=== PATIENT | female | born 1925 | race Caucasian/White ===

== ENCOUNTER 2016-12-10 17:31 | Emergency (ER) | payer OTHER ==
[~2016-12-10] VITALS: Ht 144.8 cm; Wt 49.0 kg
[~2016-12-10 17:31] MED LIST: ALEVE220 MG PO; ANTIVERT 25 MG25 M1 PO; ASPIR 8181 MG PO; CENTRUM1 TA1 PO; CRANBERRY450 M2 PO; DUREZOL 5 ML5 ML OS; ILEVRO 1.7 ML1.7 ML OS; LOPRESSOR 12.12.5 MG PO; MELOXICAM15 MG PO; NAPROSYN375 MG PO; POLYETHYLE17 GM/Dos1 PO; POLYMYXIN-B/TRI10 ML OS; PRESERVISION1 SGL PO; SYNTHROID0.025 MG PO; TRAMADOL HCL50 M1 PO; TYLENOL #31 TAB PO; VITAMIN D31000 UNI1 PO; VITAMIN D32000 IU PO
--- NOTE | 2016-12-10 18:59 | ED GI/GU/ABDOMINAL COMPLAINT ---
History of Present Illness General Chief Complaint: Abdominal Pain/Flank Pain Stated Complaint: ABD PAIN Source: patient, family Exam Limitations: poor historian Vital Signs & Intake/Output Vital Signs & Intake/Output Vital Signs Date Time Temp Pulse Resp B/P Pulse O2 O2 Flow FiO2 Ox Delivery Rate 12/10 2225 98.8 83 18 140/89 100 Room Air 12/10 1851 81 20 141/85 100 Room Air 12/10 1735 96.7 98 18 151/90 94 Room Air Allergies Coded Allergies: NO KNOWN ALLERGIES (09/15/13) Reconcile Medications Cholecalciferol (Vitamin D3) (Vitamin D3) 1,000 UNIT CAPSULE 2 CAP PO DAILY SUPPLEMENT (Reported) Cranberry Fruit (Cranberry) (Unknown Strength) TABLET (Unknown Dose) PO DAILY SUPPLEMENT (Reported) Ibandronate Sodium (Boniva) 150 MG TABLET 1 TAB PO Q30D BONES (Reported) on the same date with a full glass of water at least 30 minutes before first food or drink of the day; remain in an upright posi Multivitamin (Multi-Day Vitamins) 1 EACH TABLET 1 TAB PO DAILY SUPPLEMENT ( Reported) Polyethylene Glycol 3350 17 GRAM/DOSE POWDER 17 GM PO DAILY GI (Reported) Triage Note: PT STATES THAT SHE HAS BEEN CONSTIPATED, CALLED HER DR AND HE TOLD SON TO BUY MAGNESIUM CITRATE, PTS SON BOUGHT 2 BOTTLES AND PT DRANK 1 BOTTLE THIS AM AND NOW CAN NOT STOP MOVING HER BOWELS AND HAS ABD CRAMPING Triage Nurses Notes Reviewed? yes ? n Is pt currently ? No Onset: Abrupt Duration: day(s):, constant Timing: recent history Quality/Severity: cramping, moderate, severe Location: right lower quadrant Radiation: no radiation Activities at Onset: none No Modifying Factors: none HPI: 89-year-old female comes into emergency room with constipation for past 4 days. Patient has not had a solid bowel movement. Today her doctor told her to pick out hand magnesium citrate. Patient has been having liquidy stool since then and comes in for further evaluation. Some right-sided abdominal pain which is chronic for the patient. Denies any fever chills vomiting. Denies any other associated symptoms at this time. Denies any chest pain shortness of breath. (NEELAM FERNANDES,DONAL) Past History Travel History Traveled to [place] past 21 day No Medical History Any Pertinent Medical History? see below for history Neurological: vertigo EENT: cataracts Cardiovascular: NONE Respiratory: NONE Gastrointestinal: NONE Hepatic: NONE Renal: NONE Musculoskeletal: sciatica Psychiatric: NONE Endocrine: NONE Blood Disorders: NONE Cancer(s): NONE BIOLOGY TEACHER/Reproductive: NONE Surgical History Surgical History: L KNEE Psychosocial History Who do you live with Patient/Self What is your primary language Japanese Tobacco Use: Never used ETOH Use: denies use Illicit Drug Use: denies illicit drug use Family History Hx Contributory? No (DONAL PENA) Review of Systems Review of Systems Constitutional: Reports: no symptoms. EENTM: Reports: no symptoms. Respiratory: Reports: no symptoms. Cardiovascular: Reports: no symptoms. GI: Reports: see HPI. Genitourinary: Reports: no symptoms. Musculoskeletal: Reports: no symptoms. Skin: Reports: no symptoms. Neurological/Psychological: Reports: no symptoms. Hematologic/Endocrine: Reports: no symptoms. Immunologic/Allergic: Reports: no symptoms. All Other Systems: Reviewed and Negative (DONAL PENA) Physical Exam Physical Exam General Appearance: well developed/nourished, no apparent distress, alert, awake Head: atraumatic, normal appearance Eyes: Bilateral: normal appearance, EOMI. Ears, Nose, Throat, Mouth: hearing grossly normal, moist mucous membrane Neck: normal inspection, full range of motion Respiratory: normal breath sounds, no respiratory distress Cardiovascular: regular rate/rhythm Gastrointestinal: soft, tenderness (mild) Back: normal inspection Extremities: normal range of motion Neurologic/Psych: awake, alert, oriented x 3, normal gait, normal mood/affect Core Measures ACS in differential dx? No Severe Sepsis Present: No Septic Shock Present: No (DONAL PENA) Progress Differential Diagnosis: biliary colic, colon cancer, diverticulitis, hernia, hemorrhoids, ischemic bowel, pancreatitis, PUD/GERD, perforated viscous, SBO, threatened AB, UTI/pyelo, constipation Plan of Care: Orders Procedure Date/time Status TROPONIN LEVEL 12/10 183 Complete LIPASE 12/10 1838 Complete LACTIC ACID 12/10 183 Complete COMPREHENSIVE METABOLIC PANEL 12/10 183 Complete CBC WITHOUT DIFFERENTIAL 12/10 183 Complete AMYLASE 12/10 183 Complete EKG 12/10 183 Active Laboratory Tests 12/10/16 2138: Lactic Acid Cancelled 12/10/16 1856: Anion Gap 10, Estimated GFR 47 L, BUN/Creatinine Ratio 24.5, Glucose 130 H, Lactic Acid 1.3, Calcium 9.9, Total Bilirubin 0.6, AST 28, ALT 29, Alkaline Phosphatase 74, Troponin I < 0.01, Total Protein 7.2, Albumin 4.2, Globulin 3.0, Albumin/Globulin Ratio 1.4, Amylase 90, Lipase 144, CBC w Diff NO MAN DIFF REQ, RBC 3.99 L, MCV 91.1, MCH 30.5, RDW 14.3, MPV 7.3 L, Gran % 79.1 H, Lymphocytes % 13.8 L, Monocytes % 6.2, Eosinophils % 0.5, Basophils % 0.4, Absolute Granulocytes 7.3 H, Absolute Lymphocytes 1.3, Absolute Monocytes 0.6, Absolute Eosinophils 0, Absolute Basophils 0, PUBS MCHC 33.5 12/10/16 1838: Urine Color Cancelled, Urine Clarity Cancelled, Urine pH Cancelled, Ur Specific [place] Cancelled, Urine Protein Cancelled, Urine Ketones Cancelled, Urine Nitrite Cancelled, Urine Bilirubin Cancelled, Urine Urobilinogen Cancelled, Ur Leukocyte Esterase Cancelled, Ur Microscopic Cancelled, Urine Hemoglobin Cancelled, Urine Glucose Cancelled Diagnostic Imaging: Viewed by Me: CT Scan. Discussed w/RAD: CT Scan. Radiology Impression: SERVICE DATE: 12/10/16 EXAM TYPE: CAT - CT ABD & PELVIS W/O IV CONTRAS EXAMINATION: CT ABDOMEN AND PELVIS WITHOUT CONTRAST CLINICAL INFORMATION: Right-sided abdominal pain. COMPARISON: CT abdomen and pelvis with contrast 09/15/2013. TECHNIQUE: Multidetector volumetric imaging was performed from the superior aspect of the liver through the pubic symphysis. Sagittal and coronal reformatted images were obtained on the technologist's workstation. DLP: 201 mGy-cm FINDINGS: Limited evaluation of the solid abdominal viscera in the absence of intravenous contrast. LUNG BASES: The visualized lung bases are unremarkable. LIVER, GALLBLADDER, AND BILIARY TREE: The liver is normal in size, shape, and attenuation. There is a focal hypoattenuating lesion within the left hepatic lobe measuring 1.1 cm. This does not appear significantly changed relative to the prior examination. No contour deforming hepatic lesion or biliary ductal dilatation is present. The gallbladder is physiologically distended. Redemonstrated is a large stone within the gallbladder lumen. There are no secondary signs of acute cholecystitis. PANCREAS : Unremarkable. SPLEEN: Unremarkable. ADRENAL GLANDS: Unremarkable. KIDNEYS AND URETERS: The kidneys are normal in size, shape and contour. No contour deforming renal lesions are identified. No renal or ureteral stones are identified and there is no hydroureteronephrosis of either kidney or renal collecting system BLADDER: Unremarkable. GASTROINTESTINAL TRACT: Normal anatomic orientation of the stomach relative to the duodenum. Normal course and caliber of abdominal and pelvic bowel loops, without findings indicative of obstruction or ileus. Scattered colonic diverticulosis, most extensive along the rectosigmoid colon, without secondary signs of acute diverticulitis. Normal-appearing appendix within the right hemiabdomen. Incidental note is made of impacted stool within the rectal vault, measuring approximately 6.5 x 6.7 x 7.2 cm in AP, transverse and craniocaudal dimensions respectively. Minimal circumferential rectal wall thickening without bowel wall pneumatosis. No organizing intra-abdominal or pelvic fluid collections and no free intraperitoneal air. ABDOMINAL WALL: No significant hernia is appreciated. LYMPH NODES: No significant abdominal or pelvic adenopathy. VASCULAR: Extensive atherosclerosis of the abdominal aorta and its branching vessels, without aneurysmal dilatation. Limited evaluation for vascular patency given lack of intravenous contrast. PELVIC VISCERA: Unremarkable. OSSEOUS STRUCTURES: No acute osseous abnormality. Demineralization of the visualized bones. Severe multilevel degenerative disc disease of the imaged thoracolumbar spine with chronic compression deformities involving the L3 , L4 and L5 vertebral bodies. Specifically, there is approximately 50% disc height loss involving the L3 and L4 vertebral bodies and approximately 25% disc height loss involving the L5 vertebral body. No acute lumbar vertebral compression deformities are identified. IMPRESSION: No acute findings within the abdomen or pelvis to explain patient symptomatology. Cholelithiasis, without secondary signs of acute cholecystitis. Normal-appearing appendix within the right lower quadrant of the abdomen. Scattered colonic diverticulosis, notably involving the sigmoid colon, without secondary signs of acute diverticulitis. Incidental note is made of impacted stool within the rectal vault measuring approximately 6.5 x 6.7 x 7.2 cm. Minimal circumferential rectal wall thickening , without bowel wall pneumatosis to suggest ischemia. DICTATED BY: NAV JARAMILLO MD DATE/TIME DICTATED:12/10/161948 TRANSLATOR AND INTERPRETER:YANETH DATE/TIME TRANSCRIBED:12/10/161948 Initial ED EKG: normal intervals, normal p-waves, normal sinus rhythm, rate (76) (DONAL PENA) Departure Departure Disposition: HOME OR SELF CARE Condition: Stable Clinical Impression Primary Impression: Constipation Referrals: ANISH PARKS,LILLY Broderick (PCP/Family) Additional Instructions: take MiraLAX [id number]. Use stool softener daily. Continue to use magnesium citrate as needed for the next day. Follow-up with GI doctor on Friday. Return if any other concerns worsening symptoms. Please go over all results of today's visit with your primary care doctor. Contact your primary care doctor to let them know you were here in the emergency room. There may be nonspecific findings which may not be related to your visit today here in the emergency room but may require further evaluation and chronic monitoring by your primary care doctor. If you had a laceration today the chance of foreign body always remains. You should follow-up with your primary care doctor for recheck in 3-5 days for a wound check. If you had an x-ray done there is a chance that a fracture could have been missed on initial read and you should follow-up with your primary care doctor for repeat x-rays if symptoms persist. If your blood pressure was elevated here in the emergency room please have rechecked by her primary care doctor within the next 48 hours by your primary care doctor. If you were prescribed a narcotic here in the emergency room or any type of controlled substances you're not allowed to drive while taking this medication or operate any type of heavy machinery. Narcotics can make you feel lightheaded dizziness nausea and can cause constipation. You may need to pick out hand a stool softener. Thank you for choosing [facility] emergency room. Please return to the emergency room immediately if you have any other concerns worsening of symptoms. Departure Forms: Customer Survey General Discharge Information Comments 12/10/2016 10:20:33 PM Patient clinically looks well. Nontoxic-appearing. In no apparent distress. Patient had a couple small bowel movements here. Patient told to use magnesium citrate again tomorrow. Take [id number] MiraLAX up. Patient has an appointment with GI doctor on . No other acute findings. Case was discussed with Dr. Wilson. Return if any other concerns. Patient understands and agrees with plan of care. (DONAL PENA) PA/[employer] Co-Sign Statement Statement: ED Attending supervision documentation- [X] I saw and evaluated the patient. I have also reviewed all the pertinent lab results and diagnostic results. I agree with the findings and the plan of care as documented in the PA's/[employer]'s documentation. [X] I have reviewed the ED Record and agree with the PA's/[employer]'s documentation. [] Additions or exceptions (if any) to the PAs/[employer]'s note and plan are summarized below: [] (JOZEF PARKS,DIEUDONNE Cartagena)
[2016-12-10 19:07] LABS: ABSOLUTE BASOPHIL COUNT 0 /CUMM (0.0-0.2); ABSOLUTE EOSINOPHIL COUNT 0 /CUMM (0.0-0.7); ABSOLUTE GRANULOCYTE CT 7.3 /CUMM (1.4-6.5); ABSOLUTE LYMPH COUNT 1.3 /CUMM (1.2-3.4); ABSOLUTE MONOCYTE COUNT 0.6 /CUMM (0.10-0.60); BASOPHIL % 0.4 % (0.0-2.0); EOSINOPHIL % 0.5 % (0-5); GRANULOCYTE % 79.1 % (42.2-75.2); HEMATOCRIT 36.4 % (37-47); MEAN CORPUSCULAR HGB 30.5 PG (27.0-31.0); MEAN CORPUSCULAR HGB CONC 33.5 G/DL (33.0-37.0); MEAN CORPUSCULAR VOLUME 91.1 FL (81.0-99.0); MEAN PLATELET VOLUME 7.3 FL (7.4-10.4); PLATELET COUNT 262 /CUMM (130-400); RBC DISTRIBUTION WIDTH 14.3 % (11.5-14.5); RED BLOOD CELL CT 3.99 /CUMM (4.20-5.40); WHITE BLOOD CELL COUNT 9.2 /CUMM (4.8-10.8)
[2016-12-10] MEDS ORDERED: POLYETHYLENE G255 GM PO (19:18)
[2016-12-10] MEDS ORDERED: BONIVA150 M1 PO (19:18)
[2016-12-10] MEDS ORDERED: MULTI-DAY VITA1 EACH PO (19:18)
--- NOTE | 2016-12-10 20:01 | CT SCAN REPORT ---
EXAMINATION: CT ABDOMEN AND PELVIS WITHOUT CONTRAST CLINICAL INFORMATION: Right-sided abdominal pain. COMPARISON: CT abdomen and pelvis with contrast 09/15/2013. TECHNIQUE: Multidetector volumetric imaging was performed from the superior aspect of the liver through the pubic symphysis. Sagittal and coronal reformatted images were obtained on the technologist's workstation. DLP: 201 mGy-cm FINDINGS: Limited evaluation of the solid abdominal viscera in the absence of intravenous contrast. LUNG BASES: The visualized lung bases are unremarkable. LIVER, GALLBLADDER, AND BILIARY TREE: The liver is normal in size, shape, and attenuation. There is a focal hypoattenuating lesion within the left hepatic lobe measuring 1.1 cm. This does not appear significantly changed relative to the prior examination. No contour deforming hepatic lesion or biliary ductal dilatation is present. The gallbladder is physiologically distended. Redemonstrated is a large stone within the gallbladder lumen. There are no secondary signs of acute cholecystitis. PANCREAS: Unremarkable. SPLEEN: Unremarkable. ADRENAL GLANDS: Unremarkable. KIDNEYS AND URETERS: The kidneys are normal in size, shape and contour. No contour deforming renal lesions are identified. No renal or ureteral stones are identified and there is no hydroureteronephrosis of either kidney or renal collecting system BLADDER: Unremarkable. GASTROINTESTINAL TRACT: Normal anatomic orientation of the stomach relative to the duodenum. Normal course and caliber of abdominal and pelvic bowel loops, without findings indicative of obstruction or ileus. Scattered colonic diverticulosis, most extensive along the rectosigmoid colon, without secondary signs of acute diverticulitis. Normal-appearing appendix within the right hemiabdomen. Incidental note is made of impacted stool within the rectal vault, measuring approximately 6.5 x 6.7 x 7.2 cm in AP, transverse and craniocaudal dimensions respectively. Minimal circumferential rectal wall thickening without bowel wall pneumatosis. No organizing intra-abdominal or pelvic fluid collections and no free intraperitoneal air. ABDOMINAL WALL: No significant hernia is appreciated. LYMPH NODES: No significant abdominal or pelvic adenopathy. VASCULAR: Extensive atherosclerosis of the abdominal aorta and its branching vessels, without aneurysmal dilatation. Limited evaluation for vascular patency given lack of intravenous contrast. PELVIC VISCERA: Unremarkable. OSSEOUS STRUCTURES: No acute osseous abnormality. Demineralization of the visualized bones. Severe multilevel degenerative disc disease of the imaged thoracolumbar spine with chronic compression deformities involving the L3, L4 and L5 vertebral bodies. Specifically, there is approximately 50% disc height loss involving the L3 and L4 vertebral bodies and approximately 25% disc height loss involving the L5 vertebral body. No acute lumbar vertebral compression deformities are identified. IMPRESSION: No acute findings within the abdomen or pelvis to explain patient symptomatology. Cholelithiasis, without secondary signs of acute cholecystitis. Normal-appearing appendix within the right lower quadrant of the abdomen. Scattered colonic diverticulosis, notably involving the sigmoid colon, without secondary signs of acute diverticulitis. Incidental note is made of impacted stool within the rectal vault measuring approximately 6.5 x 6.7 x 7.2 cm. Minimal circumferential rectal wall thickening, without bowel wall pneumatosis to suggest ischemia.
[2016-12-10 22:25] VITALS: BP 140/89
== END 2016-12-10 22:27 ==
LOC: ERH 17:31
PROVIDERS: Physician Assistant Medical
DX: K59.00 Constipation, unspecified (principal)
CPT/HCPCS: 74176; 93005; 93010